=== PATIENT | male | born 1960 | race Caucasian/White ===

== ENCOUNTER 2025-05-04 09:54 | Day surgery (SDC) | payer MEDICARE, MEDICAID ==
--- NOTE | 2025-04-27 14:58 | ELECTROCARDIOGRAPH REPORT ---
[facility] Test Date: 2025-04-27 Test Time: 14:56:28 Pat Name: KATIE GONZALEZ Department: [facility]-PRE-OP Patient ID: [facility]-[id number] Room: Gender: M Distribution Spec: marissa : 1960 Requested By: SARAH MENDEZ Order Number: [id number] Reading MD: Dr. RAFAELA Mitchell Measurements Intervals [place] Rate: 63 P: 63 WV: 140 QRS: 52 QRSD: 86 T: 44 QT: 389 QTc: 399 Interpretive Statements Sinus rhythm Consider left atrial enlargement Electronically Signed On 04-28-2025 19:47:[address] RAFAELA Mitchell Please click the below link to view image of tracing.
[2025-04-27 15:12] LABS: MEAN PLATELET VOLUME 6.9 FL (7.4-10.4); PRE OP HEMATOCRIT 46.7 % (42.0-52.0); PRE OP HEMOGLOBIN 15.9 g/dL (14.0-17.9); PRE OP PLATELET COUNT 192 X10'3 (140-440); PRE OP WHITE BLOOD COUNT 6.9 10'3 (4.8-10.8); RED CELL DISTRIBUTION WIDTH 13.9 % (11.5-14.5)
[2025-04-27 15:31] LABS: CREATININE 1.15 MG/DL (0.60-1.10); PRE OP ALT 15 U/L (30-65); PRE OP ANION GAP 8 (8-16); PRE OP AST 18 U/L (10-37); PRE OP BILIRUB, TOTAL 0.3 MG/DL (0.0-1.0); PRE OP GLUCOSE 104 MG/DL (70-104); PRE OP POTASSIUM 4.2 MMOL/L (3.4-5.1); PRE OP SODIUM 137 MMOL/L (135-145); TOTAL CARBON DIOXIDE 26.9 MMOL/L (24-32); eGFR 64 ML/MIN
[2025-05-04] VITALS (13 sets, daily range): BP systolic 123–151; BP diastolic 77–102; PULSE 91–108; RESP 14–20; TEMP 98.4; O2SAT 94–99
[~2025-05-04] VITALS: Ht 182.9 cm; Wt 88.5 kg
[2025-05-04] MEDS: ceFAZolin 2gm/dext,iso 50mL 50 ML IV ONE (05:30)
[~2025-05-04 09:54] MED LIST: ERGO400C PO; LACT1CAP74 PO; NAPR220C62 PO; OMEP40CA21 PO; TRAZ-256 PO
[2025-05-04] MEDS: ringers solution, lacted 1,000 ML IV SCH (11:14)
[2025-05-04] MEDS ORDERED: BUPIVAcaine 2.5mg/ml inj 50ml vial (contains preservative) ONE (11:43)
[2025-05-04] MEDS ORDERED: LIDOcaine 1% 30ml preserv. free vial ONE (11:44)
[2025-05-04] MEDS ORDERED: midazolam 1 mg/ML 2ml injection ONE (12:02)
[2025-05-04] MEDS ORDERED: dexamethasone sod phosphate 4mg/ml inj. ONE (12:14)
[2025-05-04] MEDS ORDERED: rocuronium 10mg/ml inj IV ONE ×2 (12:14→13:39)
[2025-05-04] MEDS ORDERED: ondansetron/PF 4mg/2ml inj ONE (12:14)
[2025-05-04] MEDS ORDERED: fentaNYL /PF 50mcg/ml 5ml ampule ONE (12:14)
[2025-05-04] MEDS ORDERED: propofol inj 20 ML IV ONE (12:14)
[2025-05-04] MEDS ORDERED: LIDOcaine 2% (20mg/ml) 5ml vial ONE (12:14)
[2025-05-04] MEDS ORDERED: acetaminophen 1,000mg/100ml IV 100 ML IV PRN (12:15)
[2025-05-04] MEDS ORDERED: ringers solution, lacted 1,000 ML IV SCH (12:15)
[2025-05-04] MEDS ORDERED: ondansetron/PF 4mg/2ml inj IV PRN (12:15)
[2025-05-04] MEDS ORDERED: labetalol 20mg/4ml (5mg/ml) syringe IV PRN (12:15)
[2025-05-04] MEDS ORDERED: HYDROmorphone/PF 0.2 MG/ML SYRINGE IV PRN ×2 (12:15)
[2025-05-04] MEDS ORDERED: hydrALAZINE 20mg/ml inj. IV PRN (12:15)
[2025-05-04] MEDS ORDERED: morphine 4 MG/ML inj SYRINge IV PRN (12:15)
[2025-05-04] MEDS: LIDOcaine 1% 30ml preserv. free vial IJ ONE (12:18)
[2025-05-04] MEDS: BUPIVAcaine/PF 2.5 mg/ml (0.25%) 30ml vial IJ ONE (12:18)
[2025-05-04] MEDS ORDERED: glycopyrrolate 0.2mg/ml inj ONE (13:40)
--- NOTE | 2025-05-04 14:15 | OPERATIVE REPORT ---
Operative Report Providers to CC CC: ALEK MENDEZ MD ~ Date of Procedure: May 04, 2025 Pre-Operative Diagnosis: Incisional hernia, left inguinal hernia Post-Operative Diagnosis 1 cm incisional hernia Very large left inguinal hernia Procedure Performed 1 cm incisional hernia repair Robotic assisted, laparoscopic left inguinal hernia repair with mesh Surgeon: Alek Mendez MD FACS [employer] None Anesthesiologist: Aakash Sena Type of Anesthesia: General Findings: 1 cm fascial defect between previously placed sutures just above the umbilicus consistent with an incisional hernia Very large inguinal-scrotal indirect left inguinal hernia Evidence of previous preperitoneal mesh repair of a right inguinal hernia Wound class I Complications None Prosthetics\Implants used: Extra-large left Dextile mesh Estimated Blood Loss: Less than 10 cc Specimen Removed: None Description of Procedure: Patient was brought to the operating room and identified by the nursing staff and the attending physician. Patient was placed supine and general anesthesia was induced. Patient's abdomen was prepped and draped in standard sterile fashion. Preoperative antibiotics were given. Supraumbilical incision was made to allow for standard Ponce entry technique. Dissection was carried down to the fascia where Prolene sutures were noted consistent with his history of exploratory laparotomy. Just above the umbilicus, there was a fascial defect measuring about 1 cm in diameter. The edges were freshened and the abdomen was entered through the defect. This was used for Ponce port placement. Laparoscope was inserted after insufflation. There were fairly extensive adhesions between omentum and the anterior abdominal wall, however, I was able to visualize space to insert Bilateral, 8.5 mm robotic trochars were placed under laparoscopic guidance following administration of local anesthetic. The da Speedy robotic arm was docked to the patient and instruments placed intra- abdominally under laparoscopic visualization. The right hemipelvis was examined and showed no evidence of right inguinal hernia. There was evidence of previous mesh repair as mesh could be visualized through the peritoneum on the right. Preperitoneal flap was created and carried down to the symphysis pubis. The retropubic space of Retzius was developed and the bladder swept medially. There was hernia mesh on the right side up to the midline in the preperitoneal space. Dissection was carried out laterally until an indirect hernia sac was identified. This was very large in size containing sigmoid colon and extending deep into the left hemiscrotum. Hernia sac was completely mobilized and reduced. Peritoneum was completely dissected away from the cord structures The critical view of the myopectineal orifice was achieved. Dissection was carried out laterally to allow space for mesh deployment. An extra-large Dextile, left-sided mesh and suture was passed intra-abdominally. Mesh was laid in the preperitoneal space covering both indirect, direct, and potential femoral and obturator hernias. Mesh laid without wrinkles or folds. 3 tacking sutures using 0 Ethibond were used to fix the mesh at the symphysis pubis, rectus abdominis, and just anterior to the anterior superior iliac spine. The peritoneal rent was then closed with running, 2/0, absorbable locking suture. Peritoneal rent in the everted hernia sac was repaired with a remnant suture. [place] were retrieved. Abdomen was deflated and secondary trochars removed. Fascia at the umbilical port site was closed with a combination of 0 Ethibond and 0 Vicryl sutures, thus repairing the incisional hernia defect. Skin incisions were closed with 4-0 Monocryl sutures in a subcuticular fashion. Sterile dressings were applied. Patient was awakened and taken to the postanesthesia care unit in stable condition. Counts repoted as correct: Yes ALEK MENDEZ MD May 04, 2025 14:15
[2025-05-04] MEDS: HYDROcodone/acetaminophen 5mg/325mg tablet PO PRN (16:24)
== END 2025-05-04 17:02 | disposition home or self-care (01) ==
LOC: PAS 09:54
PROVIDERS: ATTEND Surgery
DX: K40.90 Unilateral inguinal hernia, without obstruction or gangrene, not specified as recurrent (principal); K43.2 Incisional hernia without obstruction or gangrene; K21.9 Gastro-esophageal reflux disease without esophagitis; G47.30 Sleep apnea, unspecified; Z87.891 Personal history of nicotine dependence; Z79.899 Other long term (current) drug therapy; Z96.643 Presence of artificial hip joint, bilateral; Z98.890 Other specified postprocedural states
CPT/HCPCS: 36415; 49591; 49650; 80053; 82948; 85025; 93005; A4215; A4618; C1781; J1100; J2003; J2250; J2270; J2405; J2704; J2710; J3010; J3490; J7030; J7120; Z7506; Z7508; Z7512; Z7610